=== PATIENT | female | born 1985 | race Caucasian/White ===

== ENCOUNTER 2017-10-11 19:22 | Emergency (ER) | payer OTHER ==
[~2017-10-11] VITALS: Ht 182.9 cm; Wt 154.7 kg
[2017-10-11 19:25] VITALS: BP 189/102
--- NOTE | 2017-10-11 19:30 | NUR ---
PT 32/F CAME IN WITH C/C: HEADACHE X4 DAYS. PT STATES SHE HAD N/V X1 DAY ON THE FIRST DAY. PT DENIES DIARHEA. PT DENIES ANY TRAUMA TO THE HEAD. PT DENIES ANY PMH. PT STATES SHE HAS ALLERGIES TO KEFLEX AND CLINDAMYCIN AND STATES THAT HER TOUNGE SWELLS UP AND SHE HAS TO TAKE EPINEPHRINE. PT STATES SHE TOOK MOTRIN AN HOUR AND A HALF AGO BEFORE COMING IN. PAIN IS 9/10 IN HEAD. MD MADE AWARE, SIGNIFCANT OTHER AT THE BEDSIDE. PT IN STABLE CONDITION. NO S/S OF DISTRESS NOTED. WILL CONTINUE TO MONITOR
[2017-10-11] MEDS ORDERED: NACL 0.9% 1,000 ML IV ONE (20:13)
[2017-10-11] MEDS ORDERED: KETOROLAC 30 MG/ML VIAL IVP ONE (20:15)
[2017-10-11] MEDS ORDERED: diphenhydrAMINE 50 MG/ML VIAL IVP ONE (20:15)
[2017-10-11] MEDS ORDERED: METOCLOPRAMIDE 10 MG/2 ML INJ VIAL IVP ONE (20:15)
--- NOTE | 2017-10-11 20:30 | NUR ---
ATTEMPTED IV X2, PT STATES SHE DOES NOT WANT TO CONTINUE WITH IV ANY FURTHER. PT REFUSES ALL IV MEDS AND STATES, "I ONLY WANT TO TAKE A MOTRIN BECAUSE TORDOL DOES NOTHING FOR ME ANYWAYS." MADE AWARE
[2017-10-11] MEDS ORDERED: HYDROcodone/APAP 5/325 MG 1 TAB TAB PO ONE (22:20)
--- NOTE | 2017-10-11 22:40 | NUR ---
PT STATES SHE HAS A RIDE HOME. BOYFRIEND AT THE BEDSIDE STATED HE WILL DRIVE
--- NOTE | 2017-10-11 22:45 | NUR ---
Patient discharged with v/s stable. Written and verbal after care instructions given and explained. Patient alert, oriented and verbalized understanding of instructions. Ambulatory with steady gait. All questions addressed prior to discharge. ID band removed. Patient advised to follow up with PMD. Rx of NORCO 5MG-325MG given. Patient educated on indication of medication including possible reaction and side effects. Opportunity to ask questions provided and answered.
[2017-10-11 22:46] VITALS: BP 134/83
== END 2017-10-11 22:45 | disposition home or self-care (01) ==
LOC: MED 19:22
DX: R51 Headache (principal); R11.2 Nausea with vomiting, unspecified; R42 Dizziness and giddiness; Z88.1 Allergy status to other antibiotic agents; Z90.89 Acquired absence of other organs
CPT/HCPCS: 70450; 81002; 81025; 99284; J1200; J1885; J2765

== ENCOUNTER 2018-07-06 11:28 | Emergency (ER) | payer OTHER ==
[~2018-07-06] VITALS: Ht 182.9 cm; Wt 149.2 kg
[2018-07-06 11:31] VITALS: BP 160/104
--- NOTE | 2018-07-06 12:20 | NUR ---
US AT BEDSIDE.
--- NOTE | 2018-07-06 12:25 | NUR ---
PT BIB SELF WITH C/O LEFT LEG PAIN X 2 WEEKS. PT STATES SHE MIGHT HAVE A BLOOD CLOT IN THE LEG. GAIT-WNL, PT DENIES ANY TRAUMA. BILAT LEG COOL TO TOUCH. PMH: NONE PT DENIES N/V/D; SKIN IS INTACT, PINK/WARM/DRY; AAOX4, PERRL, WITH EVEN AND STEADY GAIT; LUNGS CLEAR BL, BREATHING UNLABORED; HR EVEN AND REGULAR, BL PERIPHERAL PULSES PRESENT; BS ACTIVE X4, NO TENDERNESS TO PALPATION. PT DENIES ANY FEVER, CP, SOB, OR COUGH AT THIS TIME; PT STATES 7/10 PAIN AT THIS TIME; VSS; PATIENT POSITIONED FOR COMFORT; HOB ELEVATED; BEDRAILS UP X2; BED DOWN.
--- NOTE | 2018-07-06 12:26 | NUR ---
PT BIB SELF C/O LEFT LEG DISCOMFORT. PT STATES SHE HAS BEEN HAVING SCIATIC ISSUES X3 WEEKS, WAS ON MILD BEDREST TO REST HER SCIATIC. PT STATES TO 0/10 PAIN BUT FEELS "LIKE SOMETHING IS IN THERE", BEHIND LEFT LEG. NO REDNESS, WELLING, DEFORMITY OR DISCHARGE TO SITE AT THIS TIME. SKIN WARM, DRY AND INTACT. BREATHING EQUAL AND UNLABORED. DENIES N/V/D, FEVER, CHILL, SOB, OR CP. PMH: DENIES RX: DENIES
[2018-07-06 13:48] VITALS: BP 140/99
== END 2018-07-06 13:49 | disposition home or self-care (01) ==
LOC: MED 11:28
DX: M54.32 Sciatica, left side (principal); F17.200 Nicotine dependence, unspecified, uncomplicated; Z88.1 Allergy status to other antibiotic agents; Z91.040 Latex allergy status; Z90.89 Acquired absence of other organs
CPT/HCPCS: 93971; 99284; Q0092

== ENCOUNTER 2019-03-26 08:49 | Emergency (ER) | payer OTHER ==
[~2019-03-26] VITALS: Ht 182.9 cm; Wt 147.0 kg
--- NOTE | 2019-03-26 08:50 | NUR ---
Nhi alcaraz in [facility] - 03/26/19 at 0852 by MIKA pt ambulated to er bed 10
[2019-03-26 08:54] VITALS: BP 172/93
--- NOTE | 2019-03-26 08:56 | NUR ---
TO ED LOBBY AWAITING BED. VSS.
--- NOTE | 2019-03-26 09:06 | NUR ---
PT TAKEN TO ER BED 11
--- NOTE | 2019-03-26 09:16 | NUR ---
33/F C/O LT LABIA ABSCESS X 4 DAYS. SKIN IS INTACT, NO DRAINAGE. PT DENIES FEVER, ITCHING. DENIES PAIN, BUT STATES IT IS "UNCOMFORTABLE". VSS; BEDRAILS UP X1; ERMD TO EVALUATE.
--- NOTE | 2019-03-26 10:29 | NUR ---
Pelvic exam performed by Dr. Chavez with myself at bedside for entire examination. Patient tolerated procedure well. Patient assisted to position of comfort after examination.
--- NOTE | 2019-03-26 11:08 | NUR ---
Patient discharged with v/s stable. Written and verbal after care instructions given and explained. Patient alert, oriented and verbalized understanding of instructions. Ambulatory with steady gait. All questions addressed prior to discharge. ID band removed. Patient advised to follow up with PMD. Rx of DIFLUCAN, DOXYCYCLINE, NORCO, AND ZOFRAN given. Patient educated on indication of medication including possible reaction and side effects. Opportunity to ask questions provided and answered.
[2019-03-26 11:10] VITALS: BP 156/82
== END 2019-03-26 11:08 | disposition home or self-care (01) ==
LOC: MED 08:49
DX: N76.4 Abscess of vulva (principal); N76.2 Acute vulvitis; Z98.890 Other specified postprocedural states; Z88.1 Allergy status to other antibiotic agents; Z91.040 Latex allergy status
CPT/HCPCS: 99283